=== PATIENT | male | born 1985 | race Caucasian/White ===

== ENCOUNTER 2017-08-15 20:45 | Inpatient (IN) ==
[2017-08-15] MEDS ORDERED: ceFAZolin 1,000 MG VIAL IM STA (21:10)
[2017-08-15] MEDS ORDERED: DIPH/TET/ACEL PERT BOOSTER VACCINE 0.5 ML VIAL IM ONE ×2 (21:10→22:10)
[2017-08-15] MEDS ORDERED: SODIUM CHLORIDE 0.9% 1,000 ML IV STA (22:03)
[2017-08-15] MEDS ORDERED: ceFAZolin 1,000 MG VIAL ONE (22:10)
[2017-08-15 22:14] LABS: Basophils # 0.1 10*3/uL (0.0-0.2); Basophils % 0.4 % (0.0-0.8); Eosinophils # 0.1 10*3/uL (0.0-0.87); Eosinophils % 0.4 % (0.00-10.9); Hematocrit 59.6 VOL% (42.0-52.0); Immature Granulocytes % 0.5 %; Immature Granulocytes Absolute 0.07 #; Lymphocytes # 3.4 10*3/uL (1.4-4.0); Lymphocytes % 22.4 % (21.2-54.2); Mean Corpuscular HGB Conc 35.1 GM/DL (32-36); Mean Corpuscular Hemoglobin 33 PG (27-34); Mean Corpuscular Volume 94.8 FL (87-102); Mean Platelet Volume 10.1 FL (9.6-12.0); Monocytes % 6.8 % (1.7-12.7); Neutrophils # 10.4 10*3/uL (1.4-7.4); Neutrophils % 69.5 % (38.7-73.9); Platelet Count 224 T/CUMM (130-400); Red Blood Count 6.29 MC/CUMM (3.8-5.5); Red Cell Distribution Width 13.1 % (9.3-17.3)
[2017-08-15 22:22] LABS: Hemoglobin 20.9 GM/DL (14.0-18.0); PT Patient Result 10.5 SECS
[2017-08-15 22:34] LABS: Albumin 4.3 G/DL (3.4-5.0); Bilirubin,Total 0.4 MG/DL (0.2-1.0); Calcium 9.2 MG/DL (8.5-10.1); Osmolality,Calculated 274.5 MOS/KG (273-304); Total Protein 8.2 G/DL (6.4-8.3)
[2017-08-15] MEDS ORDERED: HYDROmorphone 2 MG/1 ML VIAL IV ONE (22:54)
[2017-08-15] MEDS ORDERED: ONDANSETRON 4 MG/2 ML VIAL IV STA (22:55)
[2017-08-15] MEDS ORDERED: HYDROmorphone 2 MG/1 ML VIAL ONE (23:03)
[2017-08-15] MEDS ORDERED: ONDANSETRON 4 MG/2 ML VIAL ONE (23:03)
[2017-08-15 23:49] LABS: Apearance,Urine CLEAR (Clear); Bilirubin,Urine Negative (Negative); Blood, Urine Small mg/dL (Negative); Glucose,Urine (UA) Negative (Negative); Ketones,Urine Negative (Negative); Nitrite,Urine Negative (Negative); Protein,Urine Negative; Urine Color Colorless (Yellow); Urine Urobilinogen < 2.0 EU/DL (0.2-1.0)
[2017-08-16 00:04] LABS: Barbiturates Screen,Urine Negative (Negative); Benzodiazepines Screen,Urine Negative (Negative); Cannabinoid Screen,Urine Negative (Negative); Opiate Screen,Urine Negative (Negative); Phencyclidine Screen,Urine Negative (Negative)
[2017-08-16] MEDS ORDERED: ACETAMINOPHEN 325 MG TABLET PO PRN (00:54)
[2017-08-16] MEDS ORDERED: ALBUTEROL/IPRATROPIUM 3 ML NEB RESP TX PRN (00:54)
[2017-08-16] MEDS ORDERED: ONDANSETRON 4 MG/2 ML VIAL IV PRN (00:54)
[2017-08-16] MEDS: LACTATED RINGERS 1,000 ML IV SCH ×2 (01:17→20:00)
[2017-08-16] MEDS: PIPERACILLIN/TAZOBACTAM 3,375 MG in SODIUM CHLORIDE 0.9% 100 ML IV SCH ×2 (01:26→20:00)
[2017-08-16] MEDS: HYDROmorphone 2 MG/1 ML VIAL IV PRN ×2 (03:18→09:43)
[2017-08-16] MEDS ORDERED: CLINDAMYCIN INJ 900 MG in PREMIX 1 EACH IV ONE (06:25)
[2017-08-16 06:26] LABS: Basophils # 0.1 10*3/uL (0.0-0.2); Basophils % 0.5 % (0.0-0.8); Eosinophils # 0.2 10*3/uL (0.0-0.87); Eosinophils % 1.9 % (0.00-10.9); Hematocrit 52.8 VOL% (42.0-52.0); Hemoglobin 18.5 GM/DL (14.0-18.0); Immature Granulocytes % 0.4 %; Immature Granulocytes Absolute 0.04 #; Lymphocytes # 3.1 10*3/uL (1.4-4.0); Lymphocytes % 29.6 % (21.2-54.2); Mean Corpuscular Hemoglobin 33 PG (27-34); Mean Corpuscular Volume 95.1 FL (87-102); Mean Platelet Volume 10.4 FL (9.6-12.0); Monocytes # 0.9 10*3/uL (0.11-0.8); Monocytes % 8.8 % (1.7-12.7); Neutrophils # 6.2 10*3/uL (1.4-7.4); Neutrophils % 58.8 % (38.7-73.9); Platelet Count 188 T/CUMM (130-400); Red Blood Count 5.55 MC/CUMM (3.8-5.5); Red Cell Distribution Width 13.2 % (9.3-17.3); White Blood Count 10.6 T/CUMM (4-12)
[2017-08-16 06:57] LABS: Albumin 3.4 G/DL (3.4-5.0); Bilirubin,Total 0.8 MG/DL (0.2-1.0); Osmolality,Calculated 275.4 MOS/KG (273-304); Potassium 4.1 MMOL/L (3.5-5.1); Total Protein 6.4 G/DL (6.4-8.3)
[2017-08-16] MEDS ORDERED: ALBUTEROL/IPRATROPIUM 3 ML NEB RESP TX ONE (07:32)
[2017-08-16] MEDS ORDERED: fentaNYL 100 MCG/2 ML VIAL ONE (08:47)
[2017-08-16] MEDS ORDERED: MIDAZOLAM 2 MG/2 ML VIAL ONE (08:47)
[2017-08-16] MEDS ORDERED: PROPOFOL 200 MG/20 ML VIAL IV ONE (08:47)
[2017-08-16] MEDS: PANTOPRAZOLE 40 MG VIAL IV SCH (15:37)
[2017-08-17] MEDS: PANTOPRAZOLE 40 MG VIAL IV SCH (08:08)
[2017-08-18] MEDS: PANTOPRAZOLE 40 MG VIAL IV SCH (08:08)
[2017-08-19] MEDS: PANTOPRAZOLE 40 MG VIAL IV SCH (09:15)
[2017-08-19] MEDS ORDERED: PANTOPRAZOLE 40 MG TABLET PO SCH (09:30)
[2017-08-19 10:54] VITALS: BP 119/89
== END 2017-08-19 16:30 | disposition home or self-care (01) | DRG 572 ==
LOC: N.ED 20:45 → N.EDINP 23:52 → N.3E 08-16 00:56
PROVIDERS: ADMIT Surgery; ATTEND Surgery